=== PATIENT | male | born 1990 | race African-American/Black ===

== ENCOUNTER 2016-02-24 11:55 | Emergency (ER) | payer OTHER ==
[2016-02-24] MEDS ORDERED: NS 1,000 ML IV ONE (15:18)
[2016-02-24] MEDS ORDERED: ZOFRAN IV ONE (15:18)
[2016-02-24] MEDS ORDERED: BENTYL IM ONE (15:18)
--- NOTE | 2016-02-24 15:25 | PROVIDER DOCUMENTATION ---
HPI-Abdominal Pain/GI Problem - General Chief Complaint: N/V/D Stated Complaint: ABD PAIN,DIARRHEA,VOMITING Time Seen by Provider: 02/24/16 15:07 Allergies/Adverse Reactions: Patient Allergies Allergy/AdvReac Type Severity Reaction Status Date / Time No Known Allergies Allergy Verified 01/26/16 08:23 Home Medications: Atomoxetine [Strattera] 60 mg PO QAM 01/26/16 - History of Present Illness-ABD Nature of Presenting Problems: A 26 y/o M with no significant PMH presented with multiple episodes of nausea NBNB emesis and watery diarrhea, started last night, pt admits eating outside at [employer] and started having symptoms after few hours of food, dnies any other symptoms, keeping up with hydration and no acute distress no fevers Review of Systems - Adult - REVIEW OF SYSTEMS - ADULT Constitutional: reports: no symptoms reported Eyes: reports: no symptoms reported Ears, Nose, Mouth & Throat: reports: no symptoms reported Cardiovascular: reports: no symptoms reported Respiratory: reports: no symptoms reported Gastrointestinal: reports: see HPI Genitourinary: reports: no symptoms reported Musculoskeletal: reports: no symptoms reported Integumentary: reports: no symptoms reported Neurological: reports: no symptoms reported Psychiatric: reports: no symptoms reported Endocrine: reports: no symptoms reported Hematologic/Lymphatic: reports: no symptoms reported Allergic/Immunologic: reports: no symptoms reported All Other Systems: Reviewed and Negative Past History - Adult - PAST MEDICAL HISTORY-ADULT Review of Records: reports: Old Records Reviewed, Nursing Assessment Review, Medications Reviewed, Social history reviewed & non-contributory. Major Childhood Illnesses: reports: denies history Cardiovascular: reports: denies history Respiratory: reports: denies history Gastrointestinal: reports: GERD Obstetrical/Gynecological: reports: denies history Genitourinary: reports: denies history Musculoskeletal: reports: denies history Neurological: reports: denies history Endocrine/Immune: reports: denies history Other Conditions: reports: denies history - PRIOR SURGERIES/PROCEDURES Surgical/Procedure History: reports: none - IMMUNIZATION STATUS Childhood Immunizations: See Nurse Assessment Flu Vaccine: See Nurse Assessment - FAMILY HISTORY Family History: reviewed, not pertinent Physical Exam-General - PHYSICAL EXAM-ADULT Initial Vital Signs Reviewed: Yes - CONSTITUTIONAL General Appearance: appears well, alert, no apparent distress - EYES Eyes: PERRL/EOMI, pink conjunctivae - HEAD, EARS, NOSE, MOUTH & THROAT HENMT: normocephalic/atraumatic, moist mucous membranes, normal ENT inspection - NECK Neck: non-tender, full range of motion, normal inspection - RESPIRATORY Respiratory: chest non-tender, lungs clear, normal breath sounds - CARDIOVASCULAR Cardiovascular: normal peripheral pulses, regular rate, rhythm, no edema - GASTROINTESTINAL (ABDOMEN) Abdominal Exam: normal bowel sounds, soft, tenderness (mild diffuse tenderness mostly in epigastric region) - LYMPHATIC Lymphatic: no adenopathy - MUSCULOSKELETAL Back Exam: normal inspection, no CVA tenderness, no vertebral tenderness Extremity: normal range of motion, non-tender, normal gait - SKIN Integumentary: normal color, normal turgor, warm/dry - NEUROLOGIC Neurologic: grossly normal, no motor/sensory deficits - PSYCHIATRIC Psych/Mental Status: normal mood/affect, normal thought content, normal thought process, oriented x 3 Progress - REASSESSMENT Reassessment #1 Status: improving Departure - Departure Time of Disposition Order: 15:22 DIAGNOSIS: Gastroenteritis Disposition: HOME 01 Certified Medical Emergency: Emergent Condition: Good Prescriptions: Diphenoxylate/Atropine [Lomotil] 1 each PO 4XDAY PRN PRN #10 tablet PRN Reason: Diarrhea Ondansetron Odt [Zofran 4 mg Odt] 4 mg PO Q6H PRN PRN #7 tablet PRN Reason: Vomiting - Critical Care Note Comments: A 26 y/o M who has normal vitals and tolerating PO with benign presentation improved after IVF and zofran with bentyl will d/c with prescription discussed red flags if noted return to ED, most likley viral gastroenteritis
[2016-02-24 17:26] VITALS: BP 150/91
== END 2016-02-24 17:28 | disposition home or self-care (01) ==
LOC: ED 11:55
DX: K52.9 Noninfective gastroenteritis and colitis, unspecified (principal); R11.2 Nausea with vomiting, unspecified; R19.7 Diarrhea, unspecified; R10.13 Epigastric pain; Z79.899 Other long term (current) drug therapy
CPT/HCPCS: 96374; J0500; J2405; J7030